=== PATIENT | female | born 1940 | race Caucasian/White ===

== ENCOUNTER 2018-02-21 15:44 | Inpatient (IN) | payer MEDICARE, BC ==
[2018-02-21 18:49] LABS: ADD MAN DIFF? NO
[2018-02-21] MEDS: ONDANSETRON 4 MG INJ IV (18:51)
[2018-02-21] MEDS: SOD CHLORIDE 0.9% 1,000 ML IV ×2 (18:51→23:30)
[2018-02-21 18:54] LABS: WHITE BLOOD COUNT 5.7 10^3/ul (4.8-10.8)
[2018-02-21 18:54] LABS: BASOPHIL # 0.1 10^3/ul (0.0-0.1); BASOPHILS % 0.9 % (0.0-2.0); EOSINOPHILS % 0.5 % (0.0-7.0); HEMOGLOBIN 13.6 g/dl (12.0-16.0); LYMPHOCYTES % 35.7 % (15.0-51.0); MEAN CORPUSCULAR HEMOGLOBIN 28.9 pg (29.0-33.0); MEAN CORPUSCULAR VOLUME 85.1 fl (82.0-101.0); MEAN PLATELET VOLUME 9.9 fl (7.4-10.4); MONOCYTE # 0.7 10^3/ul (0.3-0.9); MONOCYTES % 11.4 % (0.0-11.0); NEUTROPHIL # 2.9 10^3/ul (1.6-7.5); NEUTROPHILS % 51.3 % (39.0-77.0); PLATELET COUNT 219 10^3/UL (140-415); RED CELL DISTRIBUTION WIDTH 11.8 % (11.5-14.5)
[2018-02-21 19:11] LABS: ALANINE AMINOTRANSFERASE 28 IU/L (13-69); ALBUMIN/GLOBULIN RATIO 1.08; ALKALINE PHOSPHATASE 55 IU/L (42-121); ANION GAP 17 (8-16); ASPARTATE AMINO TRANSFERASE 28 IU/L (15-46); BILIRUBIN,INDIRECT 0.2 mg/dl (0-1.1); BILIRUBIN,TOTAL 0.2 mg/dl (0.2-1.3); BLOOD UREA NITROGEN 52 mg/dl (7-20); CALCIUM 11.9 mg/dl (8.4-10.2); CARBON DIOXIDE 28 mmol/L (21-31); CHLORIDE 91 mmol/L (97-110); CREATININE 1.38 mg/dl (0.44-1.00); GLUCOSE 135 mg/dl (70-220); POTASSIUM 3.3 mmol/L (3.5-5.1); SODIUM 133 mmol/L (135-144); TOTAL PROTEIN 7.7 g/dl (6.1-8.1)
[2018-02-21 20:12] LABS: ADD UMIC NO; UR ASCORBIC ACID NEGATIVE (NEGATIVE); UR BACTERIA FEW /HPF (NONE SEEN); UR BILIRUBIN (Dip) NEGATIVE (NEGATIVE); UR BLOOD (Dip) NEGATIVE (NEGATIVE); UR CLARITY SLIGHTLY CLOUDY (CLEAR); UR COLOR AMBER (YELLOW); UR GLUCOSE (Dip) NEGATIVE (NEGATIVE); UR HYALINE CAST FEW /HPF (NONE SEEN); UR KETONES (Dip) TRACE mg/dL (NEGATIVE); UR LEUKOCYTE ESTERASE (Dip) NEGATIVE Leu/ul (NEGATIVE); UR NITRITE (Dip) NEGATIVE (NEGATIVE); UR RBC 11 /HPF (0-5); UR SPECIFIC GRAVITY (Dip) 1.023 (1.003-1.030); UR SQUAMOUS EPITHELIAL CELL FEW /HPF (FEW); UR TOTAL PROTEIN (Dip) NEGATIVE (NEGATIVE); UR UROBILINOGEN (Dip) NEGATIVE (NEGATIVE); UR WBC 0 /HPF (0-5)
[2018-02-21] MEDS: CEFTRIAXONE 1 GM/50 ML (PMX) 50 ML IVPB (23:30)
[2018-02-22] MEDS: SOD CHLORIDE 0.9% 1,000 ML IV ×3 (02:00→20:45)
[2018-02-22] MEDS ORDERED: GLUCAGON 1 MG INJ IM (03:15)
[2018-02-22] MEDS ORDERED: DEXTROSE 50% 50 ML SYRINGE IV ×2 (03:15)
[2018-02-22] MEDS ORDERED: GLUCOSE GEL 15 GRAM TUBE BUCCAL (03:15)
[2018-02-22] MEDS ORDERED: GLUCOSE GEL 15 GRAM TUBE PO ×2 (03:15)
[2018-02-22 06:21] LABS: ANION GAP 12 (8-16); BLOOD UREA NITROGEN 35 mg/dl (7-20); CALCIUM 9.5 mg/dl (8.4-10.2); CARBON DIOXIDE 27 mmol/L (21-31); CHLORIDE 100 mmol/L (97-110); CREATININE 0.81 mg/dl (0.44-1.00); GLUCOSE 103 mg/dl (70-220); POTASSIUM 3.2 mmol/L (3.5-5.1); SODIUM 136 mmol/L (135-144)
[2018-02-22] MEDS ORDERED: INSULIN ASPART [NOVOLOG] 3 ML PEN SC (07:50)
[2018-02-22] MEDS ORDERED: ACETAMINOPHEN 325 MG TAB PO (08:30)
[2018-02-22 08:57] LABS: ADD MAN DIFF? NO
[2018-02-22] MEDS ORDERED: CALCIUM CARBONATE 600 MG PO (09:00)
[2018-02-22] MEDS ORDERED: NON-FORMULARY/PATIENT OWN MED (Omega-3/Dha/Epa/Fish Oil (Fish Oil 1,000 Mg Softgel) 1 EACH PO (09:00)
[2018-02-22] MEDS ORDERED: IRBESARTAN 300 MG PO (09:00)
[2018-02-22] MEDS ORDERED: ESCITALOPRAM OXALATE 10 MG PO (09:00)
[2018-02-22] MEDS ORDERED: ASPIRIN (EC) 81 MG TAB PO (09:00)
[2018-02-22 09:03] LABS: BASOPHIL # 0.1 10^3/ul (0.0-0.1); BASOPHILS % 1.2 % (0.0-2.0); EOSINOPHILS # 0.1 10^3/ul (0.0-0.5); EOSINOPHILS % 2.2 % (0.0-7.0); HEMATOCRIT 36.9 % (37.0-47.0); LYMPHOCYTES # 1.9 10^3/ul (0.8-2.9); LYMPHOCYTES % 45.8 % (15.0-51.0); MEAN CORPUSCULAR HEMOGLOBIN 28.8 pg (29.0-33.0); MEAN CORPUSCULAR HGB CONC 32.5 g/dl (32.0-37.0); MEAN CORPUSCULAR VOLUME 88.5 fl (82.0-101.0); MONOCYTE # 0.5 10^3/ul (0.3-0.9); MONOCYTES % 11.1 % (0.0-11.0); NEUTROPHIL # 1.6 10^3/ul (1.6-7.5); NEUTROPHILS % 39.5 % (39.0-77.0); PLATELET COUNT 174 10^3/UL (140-415); RED BLOOD COUNT 4.17 10^6/ul (4.20-5.40); RED CELL DISTRIBUTION WIDTH 11.9 % (11.5-14.5)
[2018-02-22 09:03] LABS: WHITE BLOOD COUNT 4.1 10^3/ul (4.8-10.8)
[2018-02-22 09:22] LABS: CALCIUM 9.2 mg/dl (8.4-10.2); CHLORIDE 97 mmol/L (97-110); CREATININE 0.77 mg/dl (0.44-1.00); GLUCOSE 152 mg/dl (70-220); MAGNESIUM 1.8 mg/dl (1.7-2.5); PHOSPHORUS 2.7 mg/dl (2.5-4.9); POTASSIUM 3.4 mmol/L (3.5-5.1)
[2018-02-22 09:34] LABS: ANION GAP 11 (8-16)
[2018-02-22 09:35] LABS: BLOOD UREA NITROGEN 31 mg/dl (7-20); CARBON DIOXIDE 30 mmol/L (21-31); SODIUM 135 mmol/L (135-144)
[2018-02-22] MEDS: ATORVASTATIN 10 MG TAB PO (11:07)
[2018-02-22] MEDS: FISH OIL 1,000 MG CAP PO (11:07)
[2018-02-22] MEDS: ESCITALOPRAM 10 MG TAB PO (11:07)
[2018-02-22] MEDS: CALCIUM CARBONATE 1.25 GM TAB PO ×2 (11:07→20:39)
[2018-02-22] MEDS: LOSARTAN 50 MG TAB PO (11:08)
[2018-02-22] MEDS: DOCUSATE SODIUM 100 MG CAP PO (11:08)
[2018-02-22] MEDS: AMLODIPINE 10 MG TAB PO (11:08)
[2018-02-22] MEDS: ASPIRIN (EC) 81 MG TAB PO (11:17)
[2018-02-22] MEDS: CELECOXIB 200 MG CAP PO (11:19)
[2018-02-22] MEDS: SULFASALAZINE 500 MG TAB PO ×2 (11:27→20:44)
[2018-02-22] MEDS: POTASSIUM CHLORIDE (SR) 20 MEQ TAB PO ×4 (11:27→20:40)
[2018-02-22] MEDS: METOPROLOL (XL) 50 MG TAB PO (11:28)
[2018-02-22] MEDS: MULTIVITAMINS THERAPEUTIC TAB PO (11:28)
[2018-02-23] MEDS ORDERED: ACCU-CHEK XX (02:00)
[2018-02-23] MEDS: hydrALAzine 20 MG INJ IV (06:33)
[2018-02-23] MEDS: LOSARTAN 50 MG TAB PO (08:37)
[2018-02-23] MEDS: MULTIVITAMINS THERAPEUTIC TAB PO (08:38)
[2018-02-23] MEDS: METOPROLOL (XL) 50 MG TAB PO (08:38)
[2018-02-23] MEDS: ATORVASTATIN 10 MG TAB PO (08:40)
[2018-02-23] MEDS: CELECOXIB 200 MG CAP PO (08:40)
[2018-02-23] MEDS: ESCITALOPRAM 10 MG TAB PO (08:40)
[2018-02-23] MEDS: CALCIUM CARBONATE 1.25 GM TAB PO ×2 (08:41→20:34)
[2018-02-23] MEDS: DOCUSATE SODIUM 100 MG CAP PO (08:41)
[2018-02-23] MEDS: ONDANSETRON 4 MG INJ IV (08:41)
[2018-02-23] MEDS: AMLODIPINE 10 MG TAB PO (08:41)
[2018-02-23] MEDS: ASPIRIN (EC) 81 MG TAB PO (08:41)
[2018-02-23] MEDS: POTASSIUM CHLORIDE (SR) 20 MEQ TAB PO ×5 (08:42→20:34)
[2018-02-23] MEDS: SULFASALAZINE 500 MG TAB PO ×2 (08:50→20:34)
[2018-02-23] MEDS: FISH OIL 1,000 MG CAP PO (08:58)
[2018-02-23 11:30] LABS: ADD MAN DIFF? NO
[2018-02-23 11:38] LABS: WHITE BLOOD COUNT 3.6 10^3/ul (4.8-10.8)
[2018-02-23 11:38] LABS: BASOPHILS % 0.8 % (0.0-2.0); EOSINOPHILS % 1.1 % (0.0-7.0); HEMATOCRIT 40.2 % (37.0-47.0); HEMOGLOBIN 13.3 g/dl (12.0-16.0); LYMPHOCYTES # 1.1 10^3/ul (0.8-2.9); LYMPHOCYTES % 29.6 % (15.0-51.0); MEAN CORPUSCULAR HEMOGLOBIN 28.9 pg (29.0-33.0); MEAN CORPUSCULAR HGB CONC 33.1 g/dl (32.0-37.0); MEAN CORPUSCULAR VOLUME 87.4 fl (82.0-101.0); MEAN PLATELET VOLUME 10.2 fl (7.4-10.4); MONOCYTE # 0.4 10^3/ul (0.3-0.9); MONOCYTES % 9.9 % (0.0-11.0); NEUTROPHIL # 2.1 10^3/ul (1.6-7.5); PLATELET COUNT 195 10^3/UL (140-415); RED CELL DISTRIBUTION WIDTH 11.9 % (11.5-14.5)
[2018-02-23 12:16] LABS: ANION GAP 13 (8-16); BLOOD UREA NITROGEN 13 mg/dl (7-20); CALCIUM 9.4 mg/dl (8.4-10.2); CARBON DIOXIDE 25 mmol/L (21-31); CHLORIDE 103 mmol/L (97-110); CREATININE 0.54 mg/dl (0.44-1.00); GLUCOSE 150 mg/dl (70-220); MAGNESIUM 1.7 mg/dl (1.7-2.5); PHOSPHORUS 1.8 mg/dl (2.5-4.9); POTASSIUM 3.9 mmol/L (3.5-5.1); SODIUM 137 mmol/L (135-144)
[2018-02-23] MEDS: POTASSIUM CHLORIDE 100 ML IVPB (12:27)
[2018-02-24 05:08] LABS: ADD MAN DIFF? NO
[2018-02-24 05:17] LABS: WHITE BLOOD COUNT 4.6 10^3/ul (4.8-10.8)
[2018-02-24 05:17] LABS: BASOPHIL # 0.1 10^3/ul (0.0-0.1); BASOPHILS % 1.3 % (0.0-2.0); EOSINOPHILS # 0.2 10^3/ul (0.0-0.5); HEMATOCRIT 39.2 % (37.0-47.0); HEMOGLOBIN 12.7 g/dl (12.0-16.0); LYMPHOCYTES # 2.6 10^3/ul (0.8-2.9); LYMPHOCYTES % 57.4 % (15.0-51.0); MEAN CORPUSCULAR HEMOGLOBIN 29.1 pg (29.0-33.0); MEAN CORPUSCULAR HGB CONC 32.4 g/dl (32.0-37.0); MEAN CORPUSCULAR VOLUME 89.7 fl (82.0-101.0); MEAN PLATELET VOLUME 10.1 fl (7.4-10.4); MONOCYTE # 0.6 10^3/ul (0.3-0.9); MONOCYTES % 12.7 % (0.0-11.0); NEUTROPHIL # 1.1 10^3/ul (1.6-7.5); NEUTROPHILS % 23.6 % (39.0-77.0); PLATELET COUNT 181 10^3/UL (140-415); RED BLOOD COUNT 4.37 10^6/ul (4.20-5.40); RED CELL DISTRIBUTION WIDTH 11.9 % (11.5-14.5)
[2018-02-24 05:43] LABS: ANION GAP 14 (8-16); BLOOD UREA NITROGEN 11 mg/dl (7-20); CALCIUM 9.4 mg/dl (8.4-10.2); CARBON DIOXIDE 26 mmol/L (21-31); CHLORIDE 105 mmol/L (97-110); CREATININE 0.66 mg/dl (0.44-1.00); GLUCOSE 115 mg/dl (70-220); POTASSIUM 5.1 mmol/L (3.5-5.1); SODIUM 140 mmol/L (135-144)
[2018-02-24] MEDS: ASPIRIN (EC) 81 MG TAB PO (08:20)
[2018-02-24] MEDS: AMLODIPINE 10 MG TAB PO (08:20)
[2018-02-24] MEDS: DOCUSATE SODIUM 100 MG CAP PO (08:20)
[2018-02-24] MEDS: SULFASALAZINE 500 MG TAB PO (08:21)
[2018-02-24] MEDS: ESCITALOPRAM 10 MG TAB PO (08:21)
[2018-02-24] MEDS: FISH OIL 1,000 MG CAP PO (08:21)
[2018-02-24] MEDS: LOSARTAN 50 MG TAB PO (08:21)
[2018-02-24] MEDS: CELECOXIB 200 MG CAP PO (08:21)
[2018-02-24] MEDS: METOPROLOL (XL) 50 MG TAB PO (08:21)
[2018-02-24] MEDS: MULTIVITAMINS THERAPEUTIC TAB PO (08:21)
[2018-02-24] MEDS: ATORVASTATIN 10 MG TAB PO (08:21)
[2018-02-24] MEDS: CALCIUM CARBONATE 1.25 GM TAB PO (08:21)
[2018-02-24] MEDS: POTASSIUM CHLORIDE (SR) 20 MEQ TAB PO (08:22)
== END 2018-02-24 09:40 | disposition home or self-care (01) | DRG 392 ==
LOC: MS1 23:42 → E/R 15:44
DX: A08.4 Viral intestinal infection, unspecified (principal); E87.1 Hypo-osmolality and hyponatremia; J44.9 Chronic obstructive pulmonary disease, unspecified; Z87.891 Personal history of nicotine dependence; I10 Essential (primary) hypertension; M06.9 Rheumatoid arthritis, unspecified; E78.5 Hyperlipidemia, unspecified; M81.0 Age-related osteoporosis without current pathological fracture; E87.6 Hypokalemia; I95.9 Hypotension, unspecified; E86.1 Hypovolemia
CPT/HCPCS: 36415; 71045; 80048; 80053; 81001; 81003; 82962; 83735; 84100; 85025; 87086; 93005; 96361; 96374; 97110; 97116; 97161; 97530; 99285-25